=== PATIENT | male | born 1955 | race Caucasian/White ===

== ENCOUNTER → 2019-08-08 | Day surgery (SDC) | payer OTHER ==
[~2019-08-08] VITALS: Ht 182.9 cm; Wt 79.8 kg
[~2019-08-08] MED LIST: ALPRAZOLAM 0.5 MG TAB ONE; DIGOXIN125 MCG PO; DIPHENHYDRAMINE HCL 25 MG CAP ONE; FENTANYL CITRATE/PF 100MCG/2 ML INJ ONE; HEPARIN SOD/SOD CHLORIDE 2,000 ML ONE; IOPAMIDOL 370 MG/ML 200 ML INFUS..BTL INJ ONE; LIDOCAINE HCL 2% LOCAL 20 ML VIAL ONE; METOPROLOL SUCC25 MG PO; MIDAZOLAM HCL 2 MG/2 ML VIAL ONE; SODIUM CHLORIDE 0.9% 1000ML 1,000 ML ONE; TERAZOSIN HCL2 MG; Vit D PO; XARELTO20 MG PO
--- OUTSIDE RECORDS SUMMARY | 2019-08-08 12:08 | XMS REPORT | Summary of Care ---
Author Author NIC ODONNELL M.D. Organization Unknown Address Unknown Phone Unavailable Care Team Providers Care Bottling Attendant Name Role Phone NIC ODONNELL M.D. Unavailable Unavailable Unavailable Unavailable Functional Status Name Dates Details Functional status health issues are not documented Status: Name Dates Details Cognitive status health issues are not documented Status: Problems Name Dates Details Excess ear wax (380.4, H61.20) Status: Active Bilateral impacted cerumen (380.4, H61.23) Status: Active Medications Name Dates Details No Reported Medications Active Allergies and Adverse Reactions Name Dates Details No Known Allergies (Allergy) Status: Active Procedures Procedure Dates Details Procedures not documented Immunization Name Dates Details Immunizations not documented Family History Name Dates Details No pertinent family history Comments: Other Status: Active Social History Name Dates Details - Status: Name Dates Details Never smoker Vital Signs Date Test Result Details [id number] Height 72 in Status: Weight 210 lb Status: Body Mass Index Calculated 28.48 kg/m2 Status: Body Surface Area Calculated 2.18 m2 Status: Results Date Description Value Details Results not documented Plan of Care Name Dates Details Planned Observations Planned Goals not documented Interventions Provided Plan* 62 yo M with bilateral cerumen impactions * - debrided bilateral EACs with instrumentation * - RTC PRN Instructions Name Dates Details Instructions not documented Encounters Appointment; NIC ODONNELL M.D. Encounter Diagnosis: Problem not documented On: 06-Sep-2017 16:00
[2019-08-08 12:45] VITALS: BP 109/76
[2019-08-08 16:00] VITALS: BP 92/70
--- NOTE | 2019-08-08 16:00 | NUR ---
1600pt in #9 prepped for procedure.report.Mike Rn. Alert oriented and appropriate, PERRLA, respirations even and unlabored to room air. Pulses x4 extremities equal and faint. Pedal pulses PT/DP weak to nonexistent and marked. Cap fill brisk < 3 sec. bilateral feet semi warm and dry.. TR band ok at decrease @1630 and ok to dc home Cleared for Sunday surgery Ksenia preop nurse given results of testing and laurel f/o Dr Longo office for further information. Skin warm and dry integrity appears intact in general. IV to left arm, started and presents healthy w/o s/s of infiltration or complaint. NS 0.9% started at 100ml/hr per dial flow. Abdomen soft and supple. pt offered toileting, denies need to urinate or defecate. Personal affects with patient. Family at bedside. Pt and family verbalizes understanding of POC. ds/rn
[2019-08-08 16:15] VITALS: BP 98/70
[2019-08-08 16:30] VITALS: BP 103/72
--- NOTE | 2019-08-08 16:30 | NUR ---
1630 RADIAL Compression removal: Initial Cuff volume 13 cc 1630p -2cc Removed No hematoma/bleeding noted with normal neurovascular function. 1645p -5cc Removed No hematoma/ bleeding noted with normal neurovascular function. 1700p -5cc Removed No hematoma/bleeding noted with normal neurovascular function. Air removal completed. Stasis achieved sterile 2x2,Tegaderm, Coban dressing No hematoma, bleeding noted with normal neurovascular function. Wrist splint in place. Pt instructed on POC. Ds/Rn
[2019-08-08 16:45] VITALS: BP 100/69
[2019-08-08 17:00] VITALS: BP 103/62
--- NOTE | 2019-08-08 17:00 | NUR ---
1700p Pt meets DC criteria. Rt arm assessed for s/s of complication and presence of hematoma. Skinwarm, dry, no discolor, and pulses present. IV removed from left hand. Distal tip appears intact. VS WNL. Pt denies pain, sob, or need at this time. Family at bedside. Review of discharge paperwork and follow up instructions. verbalized understanding. Pt to wheelchair and transported to front of hospital. Transferred to private vehicle under own strength w/o incident with DC paperwork in hand. -ds/rn
--- NOTE | 2019-08-08 23:24 | Operative Report ---
DATE OF PROCEDURE: 08/08/2019 SURGEON: Alfie Longo MD INDICATIONS: Coronary artery disease, abnormal stress test. PROCEDURES PERFORMED: 1. Left heart catheterization, selective coronary angiography, left ventriculography. 2. Deployment of right wrist TR band. COMPLICATIONS: None. RECOMMENDATIONS: Medical therapy, cardiac cleared for surgery. DESCRIPTION OF PROCEDURE: Access obtained in the right radial artery. A 5-Indonesian sheath was placed. Coronary angiography demonstrated minimal coronary artery disease, less than 10% luminal stenosis. LV ejection fraction 45%. LV end-diastolic pressure of 8. No gradient across the aortic valve pullback. Right wrist TR band applied. The patient discharged home same day. Alfie Longo MD KSB/MODL /[id number]
== END | disposition home or self-care (01) ==
LOC: CATH LAB 12:05
PROVIDERS: ATTEND Internal Medicine Interventional Cardiology
DX: I25.10 Atherosclerotic heart disease of native coronary artery without angina pectoris (principal); I48.0 Paroxysmal atrial fibrillation; R94.39 Abnormal result of other cardiovascular function study
CPT/HCPCS: 93458; C1769; C1887; J2001; J2250; J3010; J7030; Q9967; 99152

== ENCOUNTER 2019-08-11 10:00 | Inpatient (IN) | payer OTHER ==
[2019-08-08 12:04] LABS: BASOPHILS # (AUTO) 0.2 (0.0-0.1); BASOPHILS % 0.5 % (0.0-1.0); EOSINOPHILS # (AUTO) 0.2 (0.0-0.4); EOSINOPHILS % 0.4 % (0.0-6.0); HEMATOCRIT 33.9 % (38.2-49.6); HEMOGLOBIN 10.8 g/dL (14.0-18.0); LYMPHOCYTES # (AUTO) 23.9 (1.0-3.2); LYMPHOCYTES % 66.9 % (18.0-39.1); MEAN CORPUSCULAR HEMOGLOBIN 31.6 pg (28-32); MEAN CORPUSCULAR HGB CONC 31.9 g/dL (31-35); MEAN CORPUSCULAR VOLUME 99.1 fL (81-99); MONOCYTES # (AUTO) 9.2 (0.2-0.8); MONOCYTES % 25.7 % (4.4-11.3); NEUTROPHILS # (AUTO) 2.3 (2.1-6.9); NEUTROPHILS % 6.4 % (38.7-80.0); PLATELET COUNT 102 x10e3/uL (140-360); RED BLOOD COUNT 3.42 x10e6/uL (4.3-5.7); RED CELL DISTRIBUTION WIDTH 16.4 % (11.7-14.4)
[2019-08-08 12:24] LABS: ANION GAP 12.9 mmol/L (8-16); BLOOD UREA NITROGEN 13 mg/dL (7-26); BUN/CREATININE RATIO 12 (6-25); CARBON DIOXIDE 25 mmol/L (22-29); CHLORIDE 101 mmol/L (98-107); CREATININE, SERUM 1.11 mg/dL (0.72-1.25); EST GLOMERULAR FILTRATION RATE > 60 ML/MIN (60-); GLUCOSE 77 mg/dL (74-118); POTASSIUM 3.9 mmol/L (3.5-5.1); SODIUM 135 mmol/L (136-145)
--- NOTE | 2019-08-08 12:24 | Diagnostic Imaging Report ---
Chest, PA and lateral. 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 Comparison: None available. Discussion: The cardiomediastinal silhouette and pulmonary vasculature are within normal limits. The lungs are clear without evidence of consolidation or effusion. There are no acute osseous abnormalities. IMPRESSION: No radiographic evidence of acute cardiopulmonary abnormality. Signed by: Dinesh Mathis MD on 08/08/2019 12:21 PM
[2019-08-08 20:38] LABS: LYMPHOCYTES % (MANUAL) 85 % (19-48); MONOCYTES % (MANUAL) 9 % (3.4-9.0); NEUTROPHILS % (MANUAL) 6 % (40-74)
[2019-08-08 20:39] LABS: PLATELET ESTIMATE ADEQUATE; PLATELET MORPHOLOGY COMMENT NORMAL; RBC MORPHOLOGY COMMENT NORMAL
[~2019-08-11] VITALS: Ht 182.9 cm; Wt 81.2 kg
[~2019-08-11 10:00] MED LIST changes: -ALPRAZOLAM 0.5 MG TAB ONE; -DIPHENHYDRAMINE HCL 25 MG CAP ONE; -FENTANYL CITRATE/PF 100MCG/2 ML INJ ONE; -HEPARIN SOD/SOD CHLORIDE 2,000 ML ONE; -IOPAMIDOL 370 MG/ML 200 ML INFUS..BTL INJ ONE; -LIDOCAINE HCL 2% LOCAL 20 ML VIAL ONE; -MIDAZOLAM HCL 2 MG/2 ML VIAL ONE; -SODIUM CHLORIDE 0.9% 1000ML 1,000 ML ONE
--- OUTSIDE RECORDS SUMMARY | 2019-08-11 10:09 | XMS REPORT ---
Author Author [facility] Address Unknown Phone Unavailable Care Team Providers Care Bag Loader Machine Operator Name Role Phone JESUS MANUEL CRUZ Unavailable Unavailable Problems This patient has no known problems. Allergies, Adverse Reactions, Alerts This patient has no known allergies or adverse reactions. Medications This patient has no known medications. Results Test Description Test Time Test Comments Text Results Atomic Results Result Comments CHEST 2 VIEWS 2019-08-08 12:20:00 [place] [address] Patient Name: HILARIO FORREST JR MR #: [id number] : 1955 Age/Sex: 64/M Req #: [id number] [facility] Physician: Ordered by: JESUS MANUEL CRUZ MD Report #: [id number] Location: OR Room/Bed: Procedure: [id number] DX/CHEST 2 VIEWS Exam Date: 08/08/19 Exam Time: 1141 REPORT STATUS: Signed Chest, PA and lateral. 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 Comparison: None available. Discussion: The cardiomediastinal silhouette and pulmonary vasculature are within normal limits. The lungs are clear without evidence of consolidation or effusion. There are no acute osseous abnormalities. IMPRESSION: No radiographic evidence of acute cardiopulmonary abnormality. Signed by: Dinesh Mathis MD on 08/08/2019 12:21 PM Dictated By: DINESH MATHIS MD 1221 Transcribed By: CANDICE on 08/08/19 1221 COPY TO: JESUS MANUEL CRUZ MD
[2019-08-11] MEDS ORDERED: CEFAZOLIN SOD 1 GM/NS 50ML 100 ML IV ONE (10:23)
[2019-08-11] MEDS ORDERED: BUPIVACAINE 0.25%/EPI 30ML SDV INJ ONE (11:43)
[2019-08-11] MEDS ORDERED: NALOXONE HCL INJ 0.4 MG/ML AMP IV PRN (14:00)
[2019-08-11] MEDS ORDERED: ONDANSETRON HCL INJ 2MG/ML 2ML 2 MG/ML VIAL IV PRN (14:00)
[2019-08-11] MEDS ORDERED: ACETAMINOPHEN 1000 MG/100 ML IV PRN (14:00)
[2019-08-11] MEDS: HYDROMORPHONE 0.2MG/ML-SOD CHL 30ML PCA SYRINGE IV PRN ×2 (14:06→15:56)
[2019-08-11] MEDS ORDERED: HYDROMORPHONE 1MG/1ML INJ ONE (14:17)
[2019-08-11] MEDS ORDERED: FENTANYL CITRATE/PF 100MCG/2 ML INJ ONE ×2 (14:37→17:59)
[2019-08-11] MEDS ORDERED: ACETAMINOPHEN 1000 MG/100 ML 100 ML IV PRN (15:15)
[2019-08-11] MEDS: DEXTROSE 5%/0.45% SOD CHL 1,000 ML IV SCH (15:56)
[2019-08-11 16:11] VITALS: BP 121/70
[2019-08-11 16:21] VITALS: BP 121/70
[2019-08-11] MEDS ORDERED: ONDANSETRON HCL INJ 2MG/ML 2ML 2 MG/ML VIAL ONE (17:37)
[2019-08-11] MEDS ORDERED: SEVOFLURANE INHAL SOLN 250 ML PEN BTL ONE (17:37)
[2019-08-11] MEDS ORDERED: PROPOFOL IV EMULSION 10 MG/ML 20 ML VIAL ONE (17:37)
[2019-08-11] MEDS ORDERED: ROCURONIUM BROMIDE 10 MG/ML 5ML VIAL ONE (17:37)
[2019-08-11] MEDS ORDERED: LIDOCAINE HCL 2% LOCAL INJ 5 ML SDV VIAL INJ ONE (17:37)
[2019-08-11] MEDS ORDERED: DEXAMETHASONE SOD PHOS INJ 4 MG/ML VIAL ONE (17:37)
[2019-08-11] MEDS ORDERED: MIDAZOLAM HCL 2 MG/2 ML VIAL ONE (17:59)
--- NOTE | 2019-08-11 18:53 | Operative Report ---
DATE OF PROCEDURE: 08/11/2019 SURGEON: Daren Reno MD PREOPERATIVE DIAGNOSES: Splenic marginal lymphoma, splenomegaly. POSTOPERATIVE DIAGNOSES: Splenic marginal lymphoma, splenomegaly. PROCEDURE: Laparoscopic splenectomy. HEALTHCARE ADMINISTRATIVE ASSISTANT: None. ANESTHESIA: General endotracheal. INDICATIONS AND FINDINGS: The patient is a 64-year-old male, splenic marginal lymphoma, has had increase in his white blood cell count and was treated with chemotherapy without improvement. Surgery, the patient was found to have a massively enlarged spleen about 5 times normal size with no other abnormalities noted. There was an accessory spleen tissue just at the inferior pole of spleen, which was also excised. TECHNIQUE: After adequate general endotracheal anesthesia, the patient in supine position, the left side elevated, the abdomen and left flank were prepped and draped in sterile fashion with ChloraPrep solution. Approximately 4 cm above the umbilicus to the left midline skin and subcutaneous tissues were infiltrated with 0.5% Marcaine. Incision was made. Abdominal wall was elevated and Veress needle was introduced. Pneumoperitoneum was then created. A 10 mm trocar and cannula were then passed through this wound. Laparoscopic camera was introduced. Initial laparoscopy revealed massively enlarged spleen. A 5 mm trocar and cannula were placed in the axillary line below the costal margin. A 12 mm trocar and cannula were placed in anterior axillary line below the costal margin and a 5 mm trocar and cannula placed in left side of the abdomen just low at the umbilicus. The splenic flexure of the colon was identified. This was mobilized by dividing the peritoneal attachments. There was noted to be accessory spleen adjacent to the lower pole of the spleen. The lower pole of the spleen was mobilized further by dividing some peritoneal attachments as well as small vessels going to these were divided with LigaSure device. The short gastric vessels and attachments were divided with LigaSure device also. The hilum of the spleen was then dissected free. The splenic artery was dissected free and then was divided with Endo-NATALYA stapler. The splenic vein was also dissected free. There were 2 branches of splenic vein. These were each dissected free and they were also divided with Endo-NATALYA stapler and a smaller branch was divided between hemoclips, freeing the hilum of the spleen completely. The remaining attachments of the spleen, which were mostly peritoneal attachments were divided with LigaSure device, so the spleen was completely free. The spleen was too large to go into the available Endopouch. A transverse incision was made in left lower quadrant of the abdomen. The peritoneal cavity was entered. The incision made large enough so the hand could be introduced and spleen was then brought out through this wound intact. The spleen was noted to be massively enlarged. The accessory spleen also was removed intact. Hemostasis was seen to be adequate. The wound was irrigated with saline. Inspected for hemostasis, which was seen to be adequate. The tail of the pancreas was inspected, noted to be intact. The peritoneal cavity was irrigated further with saline. All fluid aspirated and inspected for hemostasis, which was seen to be adequate. The left lower quadrant wound was then closed with running suture of #1 PDS. Larger trocar site wounds were closed with 0 Vicryl to the fascia and skin to all wounds closed with tae. Sterile dressings applied to each wound. The patient tolerated the procedure well. Estimated blood loss was 600 mL. There were no complications. All counts were correct and the patient was taken to the recovery room in satisfactory condition. MD RICK Ignacio/MODL /[id number] cc: Diane Gerard MD
[2019-08-11 19:59] VITALS: BP 102/64
[2019-08-11 20:00] VITALS: BP 102/64
[2019-08-11] MEDS: METOPROLOL SUCCINATE 25 MG TAB XL PO SCH (21:45)
[2019-08-11] MEDS: DIGOXIN 0.125 MG TAB PO SCH (21:45)
[2019-08-12] VITALS (7 sets, daily range): BP systolic 92–107; BP diastolic 57–72
[2019-08-12] MEDS: DEXTROSE 5%/0.45% SOD CHL 1,000 ML IV SCH ×3 (00:48→20:25)
[2019-08-12 06:33] LABS: HEMATOCRIT 29.5 % (38.2-49.6); HEMOGLOBIN 9.2 g/dL (14.0-18.0); LYMPHOCYTES # (AUTO) 46.9 (1.0-3.2); LYMPHOCYTES % 73.6 % (18.0-39.1); MEAN CORPUSCULAR HEMOGLOBIN 31.7 pg (28-32); MEAN CORPUSCULAR HGB CONC 31.2 g/dL (31-35); MEAN CORPUSCULAR VOLUME 101.7 fL (81-99); MONOCYTES % 18.8 % (4.4-11.3); NEUTROPHILS # (AUTO) 4.6 (2.1-6.9); NEUTROPHILS % 7.3 % (38.7-80.0); PLATELET COUNT 110 x10e3/uL (140-360); RED CELL DISTRIBUTION WIDTH 16.1 % (11.7-14.4)
--- NOTE | 2019-08-12 06:49 | NUR ---
Left message with Dr Singletary answering service for lab alert WBC 63.62. Awaiting call back.
--- NOTE | 2019-08-12 07:20 | NUR ---
Left message for Dr Reno regarding lab alert (spoke with Kimberly) Awaking call back.
--- NOTE | 2019-08-12 07:39 | NUR ---
SPOKE WITH MD CRUZ, MADE AWARE OF CURRENT WBC LEVEL, NO NEW ORDERS AT THIS TIME
[2019-08-12 09:44] LABS: BAND NEUTROPHILS % (MANUAL) 6 %; LYMPHOCYTES % (MANUAL) 83 % (19-48); MONOCYTES % (MANUAL) 3 % (3.4-9.0); NEUTROPHILS % (MANUAL) 8 % (40-74)
[2019-08-12 10:04] LABS: PLATELET ESTIMATE SLIGHTLY DECREASED; PLATELET MORPHOLOGY COMMENT NORMAL; RBC MORPHOLOGY COMMENT NORMAL
[2019-08-12] MEDS: HYDROCODONE/APAP 7.5MG-325MG 1 EA TAB PO PRN (10:34)
[2019-08-12] MEDS: KETOROLAC TROMETHAMINE 30 MG/ML VIAL IV PRN ×2 (12:15→18:15)
--- NOTE | 2019-08-12 12:20 | NUR ---
PT MEDICATED PER MD ORDER FOR 03/12 ABD PAIN, TELEPHONED MD CRUZ TO MAKE AWARE PT STILL NOT PASSING FLATUS AND FOR NICOTINE PATCH, AWAITING CALL BACK
--- NOTE | 2019-08-12 13:40 | NUR ---
Visit made by the Spiritual Care Department Pastoral Visitor, Za Fisher. Pt sleeping soundly and no family present. Pastoral Visitor left a card describing availability of window draper and instructions on how to contact a window draper. RAOUL BAIN Benefits Assistant Spiritual Care Department O: [phone] Pager: [phone] ([phone] number calling from)
--- NOTE | 2019-08-12 14:06 | NUR ---
2ND CALL TO MD CRUZ, AWAITING CALL BACK
--- NOTE | 2019-08-12 16:30 | NUR ---
SPOKE WITH MD CRUZ, AWARE THAT PT IS NOT GETTING OOB, AND THAT HE IS COMPLAINING OF PAIN, AND NO FLATUS YET.ORDERS NOTED
[2019-08-12] MEDS: NICOTINE 14 MG/EA PATCH TOP SCH (17:36)
--- NOTE | 2019-08-12 18:30 | NUR ---
PT OOB, STANDING AT BS, HR ELEVATED, PT DENIES PAIN, O2 SATS 97% STANDING AT BS
[2019-08-12] MEDS: DIGOXIN 0.125 MG TAB PO SCH (20:25)
[2019-08-12] MEDS: METOPROLOL SUCCINATE 25 MG TAB XL PO SCH (20:26)
[2019-08-13 00:32] VITALS: BP 110/72
[2019-08-13 04:00] VITALS: BP 109/72
[2019-08-13] MEDS ORDERED: MENINGOCOCCAL POLYSACC VAC 50 MCG VIAL SQ ONE (06:30)
[2019-08-13] MEDS: DEXTROSE 5%/0.45% SOD CHL 1,000 ML IV SCH (06:52)
--- NOTE | 2019-08-13 07:20 | NUR ---
Received patient and a/ox3, NG tube in place, no resp distress, no c/o pains, call light within reach, will monitor. Addendum: 08/13/19 at 0854 by Yousif Henderson RN WRONG CHART
--- NOTE | 2019-08-13 07:30 | NUR ---
Patient received this morning, a/ox3, call light within reach, patient reports rounds by Dr. Reno and that he will go home today
[2019-08-13] MEDS ORDERED: PNEUMOCOCCAL VACCINE POLYVALENT 23 MCG/0.5 ML VIAL IM ONE (08:15)
[2019-08-13 08:53] VITALS: BP 104/70
--- NOTE | 2019-08-13 08:55 | NUR ---
Call from Tele O2 dropped to 88, patient had taken off O2 to use the rest room. Checked patient and O2 back up to 95. Will take patient off O2 given does not use O2 in a home setting and monitor. Currently on cont POX monitor.
[2019-08-13 08:56] VITALS: BP 104/70
[2019-08-13] MEDS: NICOTINE 14 MG/EA PATCH TOP SCH (09:00)
[2019-08-13] MEDS: KETOROLAC TROMETHAMINE 30 MG/ML VIAL IV PRN (10:56)
[2019-08-13] MEDS: HYDROCODONE/APAP 7.5MG-325MG 1 EA TAB PO PRN (10:56)
--- NOTE | 2019-08-13 11:27 | NUR ---
Call to Dr. Reno by Pharmacist and they do not carry Meningococcal vaccine at this time. Dr. Reno will administer vaccine out patient
[2019-08-13 11:36] VITALS: BP 121/75
[2019-08-13] MEDS ORDERED: HAEMOPH B POLYSACCH CONJ VACC 10 MCG/0.5 ML VIAL IM ONE (12:00)
== END 2019-08-13 13:15 | disposition home or self-care (01) | DRG 822 ==
LOC: OR 10:00 → PACU V 13:54 → MED/SURG 15:02
PROVIDERS: ADMIT Surgery; ATTEND Surgery
PROC: 07TP4ZZ Resection of Spleen, Percutaneous Endoscopic Approach (ICD-10-PCS; principal; 2019-08-11 12:30)
DX: C83.07 Small cell B-cell lymphoma, spleen (principal); F17.210 Nicotine dependence, cigarettes, uncomplicated; I48.91 Unspecified atrial fibrillation; Z79.01 Long term (current) use of anticoagulants
CPT/HCPCS: 36415; 71046; 80048; 85025; 86850; 86900; 86920; 88305; 90732; 93005; J0690; J1100; J1170; J1885; J2001; J2250; J2405; J3010

== ENCOUNTER → 2020-03-04 | Day surgery (SDC) | payer OTHER ==
[2020-03-01 10:59] LABS: BASOPHILS % 0.1 % (0.0-1.0); EOSINOPHILS # (AUTO) 0.2 (0.0-0.4); EOSINOPHILS % 0.4 % (0.0-6.0); HEMATOCRIT 38.9 % (38.2-49.6); HEMOGLOBIN 12.8 g/dL (14.0-18.0); LYMPHOCYTES # (AUTO) 39.4 (1.0-3.2); LYMPHOCYTES % 71.3 % (18.0-39.1); MEAN CORPUSCULAR HEMOGLOBIN 34.8 pg (28-32); MEAN CORPUSCULAR HGB CONC 32.9 g/dL (31-35); MEAN CORPUSCULAR VOLUME 105.7 fL (81-99); MONOCYTES # (AUTO) 13.1 (0.2-0.8); MONOCYTES % 23.7 % (4.4-11.3); NEUTROPHILS # (AUTO) 2.4 (2.1-6.9); NEUTROPHILS % 4.3 % (38.7-80.0); PLATELET COUNT 200 x10e3/uL (140-360); RED BLOOD COUNT 3.68 x10e6/uL (4.3-5.7); RED CELL DISTRIBUTION WIDTH 13.9 % (11.7-14.4)
[2020-03-01 11:32] LABS: ANION GAP 12.2 mmol/L (8-16); BLOOD UREA NITROGEN 20 mg/dL (7-26); BUN/CREATININE RATIO 18 (6-25); CARBON DIOXIDE 24 mmol/L (22-29); CHLORIDE 106 mmol/L (98-107); CREATININE, SERUM 1.09 mg/dL (0.72-1.25); EST GLOMERULAR FILTRATION RATE > 60 ML/MIN (60-); GLUCOSE 96 mg/dL (74-118); POTASSIUM 4.2 mmol/L (3.5-5.1); SODIUM 138 mmol/L (136-145)
[2020-03-01 12:19] LABS: EOSINOPHILS % (MANUAL) 1 % (0-7); LYMPHOCYTES % (MANUAL) 77 % (19-48); MONOCYTES % (MANUAL) 18 % (3.4-9.0); NEUTROPHILS % (MANUAL) 4 % (40-74); PLATELET ESTIMATE ADEQUATE; PLATELET MORPHOLOGY COMMENT NORMAL
[2020-03-01 12:20] LABS: RBC MORPHOLOGY COMMENT NORMAL
[~2020-03-04] MED LIST changes: +ACETAMINOPHEN/CODEINE 300MG - 30MG TAB ONE; +BACITRACIN 50,000 UNIT VIAL ONE; +BUPIVACAINE HCL 0.5% INJ 30 ML VIAL INJ ONE; +CEFAZOLIN SOD 1 GM/NS 50ML 50 ML IV ONE; +FENTANYL CITRATE/PF 100MCG/2 ML INJ ONE; +HYDROMORPHONE 2MG/ML 2 MG/ML ML ONE; +KETOROLAC TROMETHAMINE 30 MG/ML VIAL ONE; +METOPROLOL TARTRATE INJ 1 MG/ML VIAL ONE; +MORPHINE SULFATE INJ 4 MG/ML INJ 1ML ONE; +ONDANSETRON HCL INJ 2MG/ML 2ML 2 MG/ML VIAL ONE; +PHENYLEPHRINE HCL 1% 10 MG/ML VIAL ONE; +PROPOFOL IV EMULSION 10 MG/ML 20 ML VIAL ONE; +ROCURONIUM BROMIDE 10 MG/ML 5ML VIAL IV ONE; +SEVOFLURANE INHAL SOLN 250 ML PEN BTL ONE; +SUGAMMADEX SODIUM 200 MG/2 ML VIAL IV ONE
[2020-03-04 12:30] VITALS: BP 112/83
--- NOTE | 2020-03-04 15:29 | Operative Report ---
DATE OF PROCEDURE: 03/04/2020 SURGEON: Daren Reno MD PREOPERATIVE DIAGNOSIS: Incisional hernia. POSTOPERATIVE DIAGNOSIS: Incisional hernia. PROCEDURE: Repair of incisional hernia with mesh. PACKER SAUSAGE AND WIENER: None. ANESTHESIA: General endotracheal. INDICATIONS AND FINDINGS: The patient is a 64-year-old male, who had a complaints of pain or swelling at the site of previous surgery. At Surgery, based on the hernia with a fascial defect, that was approximately 3 x 6 cm. TECHNIQUE: After adequate general endotracheal anesthesia, the patient is in supine position, the abdomen was prepped and draped in sterile fashion with ChloraPrep solution. The site of previous surgery in the left lower abdomen, there was a hernia incision made through this previous scar here, it carried down through subcutaneous tissue. The herniated mass identified, dissected free from the surrounding tissues down to the fascia and freed from the fascia throughout circumference of the hernia defect. Hernia sac was opened. There were no adhesions of the small bowel was seen, with a fascial defect completely delineated, a separate mesh was fashioned in appropriate size soaked in antibiotic solution, was then sutured to the undersurface of the fascia, intraperitoneal position with a running horizontal mattress suture of #0 Prolene. Once the mesh was in place, the fascia was then closed over the mesh transversely with a running suture of #0 Prolene. Care was taken not to entrap the underlying bowel while the mesh was being sutured in place. The fascia overlying the mesh was closed. Once the hernia was repaired, the wound was inspected for hemostasis, which was seen to be adequate. The wound was irrigated with antibiotic solution. Wound was then infiltrated with 0.5% Marcaine. The subcutaneous tissue closed with running suture of 2-0 Vicryl. Skin was closed with tae. Sterile dressing was applied. The patient tolerated the procedure well. Estimated blood loss was 10 mL. There were no complications. All counts were correct and the patient was taken to the recovery room in satisfactory condition. Daren Reno MD DWG/MODL /[id number] cc: MD Diane Madison MD
== END | disposition home or self-care (01) ==
LOC: OR 09:15
PROVIDERS: ATTEND Surgery
DX: K43.2 Incisional hernia without obstruction or gangrene (principal); I48.91 Unspecified atrial fibrillation; F17.210 Nicotine dependence, cigarettes, uncomplicated; Z01.812 Encounter for preprocedural laboratory examination; Z11.59 Encounter for screening for other viral diseases; Z79.02 Long term (current) use of antithrombotics/antiplatelets; Z85.72 Personal history of non-Hodgkin lymphomas
CPT/HCPCS: 36415; 49560; 49568; 80048; 85025; 87635; C1781; J0690; J1170; J1885; J2270; J2370; J2405; J2704; J3010